=== PATIENT | female | born 1935 | race Caucasian/White ===

== ENCOUNTER → 2017-11-02 | Outpatient (CLI) | payer MEDICARE, BC ==
--- NOTE | 2017-11-02 14:15 | NM ---
EXAMINATION TYPE: NM bone scan whole body DATE OF EXAM: 11/02/2017 COMPARISON: NONE HISTORY: Pain Delayed whole-body scanning was performed following the injection of 23.5 mCi Tc 99m MDP. Images acq uired 3 hours post injection. FINDINGS: There is a linear area of intense uptake proximal level of T9 compatible with compression fracture. Abnormal uptake seen throughout the mid and lower lumbar spine likely degenerative. Abnormal intense uptake seen in the mid thoracic spine with degenerative related to compression defor mity. Abnormal uptake involving the anterior lower right and anterior mid left rib cage likely related to p revious fracture. Abnormal uptake involving the feet is likely post arthritic. Nonspecific uptake involving the cervical spine. IMPRESSION: 1. Intense abnormal linear uptake at 2 levels within the thoracic spine with the most marked findings seen the proximal level of T9 most consistent with compression fracture deformity. 2. Abnormal uptake involving the cervical and the lumbar spine likely degenerative and could be corre lated with x-ray. 3. Abnormal uptake involving the anterior left mid and anterior lower right rib cage likely related t o previous fracture.
== END | disposition home or self-care (01) ==
LOC: RADNMMAIN 10:11
PROVIDERS: ATTEND Physical Medicine & Rehabilitation
DX: R93.7 Abnormal findings on diagnostic imaging of other parts of musculoskeletal system (principal)
CPT/HCPCS: 78306; A9503

== ENCOUNTER 2024-10-13 18:15 | Inpatient (IN) | payer MEDICARE, BC ==
--- NOTE | 2024-10-13 18:29 | ED ---
Abdominal Pain HPI - General Stated Complaint: abd pain Time Seen by Provider: 10/13/24 18:26 Source: RN notes reviewed, old records reviewed, Caregiver Mode of arrival: EMS Limitations: no limitations - History of Present Illness Initial Comments: This is a 89-year-old female to ER for evaluation of 2 days of worsening back pain she believes it started when she went to get something out of a high or upper shelf. Patient has severe back pain here in the ER positive nausea vo miting positive vomiting severe anxiety and uncontrollable shaking. Patient is tremoring while giving history. Patient does have history of back pain concern for history of back fracture but no recent trauma no fevers no current shortness of breath or chest pain MD Complaint: abdominal pain, other (Back pain severe) -: days(s) Location: L flank, R flank, bilateral flank Radiation: back Severity: severe Severity scale (1-10): 10 Quality: sharp Consistency: intermittent Improves With: eating Worsens With: nothing Associated Symptoms: nausea, vomiting Treatments Prior to Arrival: other - Related Data Allergies Allergy/AdvReac Type Severity Reaction Status Date / Time No Known Allergies Allergy Verified 10/13/24 19:01 Review of Systems ROS Statement: Those systems with pertinent positive or pertinent negative responses have been documented in the HPI. ROS Other: All systems not noted in ROS Statement are negative. General Exam General appearance: alert, in no apparent distress Head exam: Present: atraumatic, normocephalic, normal inspection Eye exam: Present: normal appearance, PERRL, EOMI. Absent: scleral icterus, conjunctival injection, periorbital swelling ENT exam: Present: normal exam, mucous membranes moist Neck exam: Present: normal inspection. Absent: tenderness, meningismus, lymphadenopathy Respiratory exam: Present: normal lung sounds bilaterally. Absent: respiratory distress, wheezes, rales, rhonchi, stridor Cardiovascular Exam: Present: regular rate, normal rhythm, normal heart sounds. Absent: systolic murmur, diastolic murmur, rubs, gallop, clicks GI/Abdominal exam: Present: soft, normal bowel sounds. Absent: distended, tend erness, guarding, rebound, rigid Extremities exam: Present: normal inspection, full ROM, normal capillary refill. Absent: tenderness, pedal edema, joint swelling, calf tenderness Back exam: Present: normal inspection Neurological exam: Present: alert, oriented X3, CN II-XII intact Psychiatric exam: Present: normal affect, normal mood Skin exam: Present: warm, dry, intact, normal color. Absent: rash Course Vital Signs 10/13/24 10/13/24 10/13/24 18:25 19:50 21:45 Temperature 98.5 F Pulse Rate 71 97 74 Respiratory 17 18 18 Rate Blood Pressure 139/99 139/99 161/91 O2 Sat by Pulse 96 96 99 Oximetry - Reevaluation(s) Reevaluation #1: 10/13/24 23:32 Medical records reviewed Reevaluation #2: 10/13/24 23:32 Patient symptoms are intermittent and persistent, when they come on they are severe here in the ER Reevaluation #3: 10/13/24 23:32 Patient informed of results questions answered Reevaluation #4: Was pt. sent in by a medical professional or institution (FLACO Manriquez, [employer], urgent care, hospital, or penitentiary...) When possible be specific @ -no Did you speak to anyone other than the patient for history (EMS, parent, family, police, friend...)? What history was obtained from this source @ -no Did you review nursing and triage notes (agree or disagree)? Why? @ -agree Are old charts reviewed (outside hosp., previous admission, EMS record, old EKG, old radiological studies, urgent care reports/EKG's, penitentiary records)? Report findings @ -yes Differential Diagnosis (chest pain, altered mental status, abdominal pain women, abdominal pain men, vaginal bleeding, weakness, fever, dyspnea, syncope, headache, dizziness, GI bleed, back pain, seizure, CVA, palpatations, mental health, musculoskeletal)? @ -prior EKG interpreted by me (3pts min.). @ -yes X-rays interpreted by me (1pt min.). @ -yes negative for acute disease CT interpreted by me (1pt min.). @ -no U/S interpreted by me (1pt. min.). @ -no What testing was considered but not performed or refused? (CT, X-rays, U/S, labs)? Why? @ -none What meds were considered but not given or refused? Why? @ -none Did you discuss the management of the patient with other professionals (professionals i.e. Dr., PA, [employer]OR, lab, RT, psych nurse, social work msw, director of quality control, teacher, peace officer, employment case manager)? Give summary @ -no Was smoking cessation discussed for >3mins.? @ -no Was critical care preformed (if so, how long)? @ -no Were there social determinants of health that impacted care today? How? (H omelessness, low income, unemployed, alcoholism, drug addiction, transportation, low edu. Level, literacy, decrease access to med. care, skilled nursing, rehab)? @ -none Was there de-escalation of care discussed even if they declined (Discuss DNR or withdrawal of care, Hospice)? DNR status @ -no What co-morbidities impacted this encounter? (DM, HTN, Smoking, COPD, CAD, Cancer, CVA, ARF, Chemo, Hep., AIDS, mental health diagnosis, sleep apnea, morbid obesity)? @ -none Was patient admitted / discharged? Hospital course, mention meds given and route, prescriptions, significant lab abnormalities, going to OR and other pertinent info. @ - Undiagnosed new problem with uncertain prognosis? @ -no Drug Therapy requiring intensive monitoring for toxicity (Heparin, Nitro, Insulin, Cardizem)? @ -no Were any procedures done? @ -no Diagnosis/symptom? @ - Acute, or Chronic, or Acute on Chronic? @ -Acute Uncomplicated (without systemic symptoms) or Complicated (systemic symptoms)? @ -Complicated Side effects of treatment? @ -no Exacerbation, Progression, or Severe Exacerbation? @ -exacerbation Poses a threat to life or bodily function? How? (Chest pain, [place], [place], pneumonia, PE, COPD, DKA, ARF, appy, cholecystitis, CVA, Diverticulitis, Homicidal, Suicidal, threat to staff... and all critical care pts) @ -yes Reevaluation #5: Differential Back Pain: Strain, zoster, cauda equina syndrome, epidural abscess, vertebral osteomyelitis, discitis, fracture, subluxation, disc herniation, DJD, spinal stenosis, dissection, AAA, pancreatitis, peptic ulcer disease, pyelonephritis, kidney stone, this is not meant to be an all-inclusive list. - Consultations Consultation #1: Spoke with sound who agrees to admit the patient Medical Decision Making - Medical Decision Making 89 female to ER with acute and episodic attacks of intractable back pain patient will be admitted for significant anxiety reaction secondary to possibility of pain recurring in pain control when needed - Lab Data Result diagrams: 10/13/24 18:30 10/13/24 18:30 Lab Results 10/13/24 10/13/24 10/13/24 Range/Units 18:30 18:30 18:30 WBC 7.79 (4.50-10.00) 10*3/uL RBC 4.54 (4.10-5.20) 10*6/uL Hgb 15.0 (12.0-15.0) g/dL Hct 43.5 (37.2-46.3) % MCV 95.8 (80.0-97.0) fL MCH 33.0 H (27.0-32.0) pg MCHC 34.5 (32.0-37.0) g/dL Plt Count 175 (140-440) 10*3/uL MPV 9.2 L (9.5-12.2) fL Immature Gran % (Auto) 0.6 % Neutrophils % 70.0 % Lymphocytes % 21.6 % Monocytes % 6.9 % Eosinophils % 0.5 % Basophils % 0.4 % Immature Gran # 0.05 H (0.00-0.04) 10*3/uL Neutrophils # 5.45 (1.80-7.70) 10*3/uL Lymphocytes # 1.68 (0.90-5.00) 10*3/uL Monocytes # 0.54 (0.20-1.00) 10*3/uL Eosinophils # 0.04 (0.04-0.35) 10*3/uL Basophils # 0.03 (0.00-0.10) 10*3/uL PT 10.8 (10.0-12.5) sec INR 1.0 (<1.2) APTT 21.3 L (22.0-30.0) sec Sodium 137 (137-145) mmol/L Potassium 3.9 (3.5-5.1) mmol/L Chloride 107 (98-107) mmol/L Carbon Dioxide 20 L (22-30) mmol/L Anion Gap 10 mmol/L BUN 15 (7-17) mg/dL Creatinine 0.70 (0.52-1.04) mg/dL Est GFR (CKD-EPI)AfAm 89 (>60 ml/min/1.73 sqM) Est GFR (CKD-EPI)NonAf 77 (>60 ml/min/1.73 sqM) Glucose 158 H (74-99) mg/dL Calcium 10.7 H (8.4-10.2) mg/dL Phosphorus 3.4 (2.5-4.5) mg/dL Magnesium 1.9 (1.6-2.3) mg/dL Total Bilirubin 0.7 (0.2-1.3) mg/dL AST 29 (14-36) U/L ALT 22 (4-34) U/L Alkaline Phosphatase 113 (38-126) U/L Total Protein 7.4 (6.3-8.2) g/dL Albumin 4.3 (3.5-5.0) g/dL Amylase 77 (30-110) U/L Lipase 77 (23-300) U/L - Radiology Data Radiology results: report reviewed (CT abdomen pelvis and then CT angio chest abdomen pelvis negative for acute disease), image reviewed Disposition Clinical Impression: Thoracic back pain, Mid back pain, Intractable pain, Anxiety Disposition: ADMITTED IP TO THIS HOSP Condition: Fair Is patient prescribed a controlled substance at d/c from ED?: No Referrals: Nonstaff,Physician [Primary Care Provider] - 1-2 days Time of Disposition: 23:30
[2024-10-13 18:40] LABS: Basophils # (A) 0.03 10*3/uL (0.00-0.10); Basophils % (A) 0.4 %; Eosinophils # (A) 0.04 10*3/uL (0.04-0.35); Eosinophils % (A) 0.5 %; HCT 43.5 % (37.2-46.3); Lymphocytes # (A) 1.68 10*3/uL (0.90-5.00); Lymphocytes % (A) 21.6 %; MCHC 34.5 g/dL (32.0-37.0); MCV 95.8 fL (80.0-97.0); Mean Platelet Volume 9.2 fL (9.5-12.2); Monocytes # (A) 0.54 10*3/uL (0.20-1.00); Monocytes % (A) 6.9 %; Neutrophils # (A) 5.45 10*3/uL (1.80-7.70); Platelet Count 175 10*3/uL (140-440); RBC 4.54 10*6/uL (4.10-5.20); RDW 13.2 % (11.5-14.5); WBC 7.79 10*3/uL (4.50-10.00)
[2024-10-13 18:54] LABS: Prothrombin Time 10.8 sec (10.0-12.5)
[2024-10-13 19:00] LABS: Partial Thromboplastin Time 21.3 sec (22.0-30.0)
[2024-10-13 19:28] LABS: ALT 22 U/L (4-34); AST 29 U/L (14-36); African American GFR (CKD) 89 (>60 ml/min/1.73 sqM); Albumin 4.3 g/dL (3.5-5.0); Alkaline Phosphatase 113 U/L (38-126); Amylase 77 U/L (30-110); Anion Gap 10 mmol/L; Blood Urea Nitrogen 15 mg/dL (7-17); Calcium 10.7 mg/dL (8.4-10.2); Carbon Dioxide 20 mmol/L (22-30); Chloride 107 mmol/L (98-107); Glucose 158 mg/dL (74-99); Lipase 77 U/L (23-300); Magnesium 1.9 mg/dL (1.6-2.3); Non-African American GFR(CKD) 77 (>60 ml/min/1.73 sqM); Phosphorus 3.4 mg/dL (2.5-4.5); Potassium 3.9 mmol/L (3.5-5.1); Sodium 137 mmol/L (137-145); Total Bilirubin 0.7 mg/dL (0.2-1.3); Total Protein 7.4 g/dL (6.3-8.2)
[2024-10-13] MEDS: SODIUM CHLORIDE 0.9% 1,000 ML IV ONE (19:46)
[2024-10-13] MEDS: HYDROmorphone 1 MG/ML 1 ML SYRINGE IVP STA (19:47)
--- NOTE | 2024-10-13 19:56 | CT ---
EXAMINATION TYPE: CT abdomen pelvis wo con DATE OF EXAM: 10/13/2024 COMPARISON: NONE CLINICAL INDICATION: Female, 89 years old with history of LS spine, Pt is coming in for lower back pa in radiating all around to front of abdomen. Per pt she went to move/lift something and she felt a po p x 2 days ago., TECHNIQUE: CT scan of the abdomen and pelvis is performed , patient injected with mL of ., (none if empty) Oral contrast used: without Oral Contrast (none if empty) CT DLP: 558.9 mGycm, Automated exposure control for dose reduction was used. FINDINGS: Within the limitations of a noncontrast study, on the observations are made. LUNG BASES: Mild to moderate posterior bibasilar linear scarring and atelectasis. There is 1.5 x 1.1 cm posterior left lower lobe pulmonary nodule axial image 7. LIVER/GB: No significant abnormality is appreciated. PANCREAS: No significant abnormality is seen. SPLEEN: No significant abnormality is seen. ADRENALS: No significant abnormality is seen. KIDNEYS: No significant abnormality is seen. BOWEL: Diffuse colonic diverticulosis. No convincing CT evidence for acute diverticulitis. No abnorma l small or large bowel dilatation. Normal appearing appendix from the cecum. UTERUS/ADNEXA: No gross abnormality seen. LYMPH NODES: No greater than 1cm abdominal or pelvic lymph nodes are appreciated. OSSEOUS STRUCTURES: Demineralization is present. Mild chronic compression type fracture at L5 level. Mild to moderate disc space narrowing at L2-L3 level. Slight scoliotic curvature. Moderate narrowing of both hip joints. OTHER: Moderate calcified plaque of the aorta extends into branch vessels. Small fat-containing umbil ical hernia. IMPRESSION: 1. Chronic changes as detailed above without acute findings seen to account for the patient's clinica l symptoms. 2. There is a 1.5 x 1.1 cm posterior left lower lobe pulmonary nodule. Malignant neoplasm cannot be e xcluded. Advise further investigation with diagnostic contrast enhanced chest CT to assess for possib le additional nodules and/or thoracic adenopathy. [facility], , 10/13/2024 7:54 PM
[2024-10-13] MEDS: ONDANSETRON 4 MG/2 ML VIAL IVP STA (21:49)
[2024-10-13] MEDS: HYDROmorphone 0.5 MG/0.5 ML SYRINGE IVP STA (22:01)
[2024-10-13] MEDS: KETOROLAC 15 MG/ML 1 ML VIAL IVP STA (22:09)
--- NOTE | 2024-10-13 22:50 | CT ---
EXAMINATION TYPE: CT angio chest DATE OF EXAM: 10/13/2024 COMPARISON: NONE CLINICAL INDICATION: Female, 89 years old with history of PAIN, Pt is coming in for back pain. Per pt she went to move/lift something and she felt a pop x 2 days ago, TECHNIQUE: CTA scan of the thorax is performed with IV Contrast, patient injected with 100 combined w/ abd/pel m L of Isovue 370, pulmonary embolism protocol. MIP Images are created on CT scanner and reviewed. CT DLP: 369.1 mGycm. Automated Exposure Control for Dose Reduction was Utilized. FINDINGS: LUNGS: Mild to moderate bilateral lower lobe linear scarring and/or atelectasis is present. Upper truong gs remain clear. No pleural effusion or pneumothorax seen bilaterally. There is 1.5 x 1.2 cm left bas ilar pulmonary nodule axial image 107. HEART: Mild cardiomegaly. Moderate coronary artery calcifications present. MEDIASTINUM: Suboptimal study with most dense contrast in SVC but no convincing CT evidence for acute pulmonary embolism. There are no greater than 1 cm hilar or mediastinal lymph nodes. No pericardi al effusion is seen. OTHER: Mild height loss involving T9 vertebra. Please refer to same day CT abdomen and pelvis report for complete details in the upper abdomen. IMPRESSION: 1. No CT evidence for acute pulmonary embolism. 2. Mild to moderate bilateral lower lung linear scarring and/or atelectasis is present. 3. There is 1.5 cm left basilar pulmonary nodule. Advise nonemergent PET CT follow-up to rule out mal ignancy. [facility], , 10/13/2024 10:48 PM
--- NOTE | 2024-10-13 22:54 | CT ---
EXAMINATION TYPE: CT abdomen pelvis w con DATE OF EXAM: 10/13/2024 COMPARISON: CT abdomen and pelvis earlier today. CLINICAL INDICATION: Female, 89 years old with history of pain, Pt is coming in for back pain. Per pt she went to move/lift something and she felt a pop x 2 days ago, TECHNIQUE: CT scan of the abdomen and pelvis is performed with IV Contrast, patient injected with 100 combined w / CTA mL of Isovue 370., (none if empty) Oral contrast used: without Oral Contrast (none if empty) CT DLP: 891.6 mGycm, Automated exposure control for dose reduction was used. FINDINGS: LUNG BASES: Please refer to same day CTA chest for complete details on the lung bases. Persistent sub optimal study due to artifact from overlying adjacent upper extremities. LIVER/GB: No significant abnormality is appreciated. PANCREAS: No significant abnormality is seen. SPLEEN: No significant abnormality is seen. ADRENALS: No significant abnormality is seen. KIDNEYS: Symmetric cortical medullary uptake and excretion without hydronephrosis seen bilaterally. BOWEL: Diffuse colonic diverticulosis redemonstrated greatest distally. No convincing CT evidence for acute diverticulitis. No abnormal bowel dilatation. UTERUS/ADNEXA: No gross abnormality seen. LYMPH NODES: No greater than 1cm abdominal or pelvic lymph nodes are appreciated. OSSEOUS STRUCTURES: Demineralization is present. Mild chronic compression type fracture at L5 level. Mild to moderate disc space narrowing at L2-L3 level. Slight scoliotic curvature. Moderate narrowing of both hip joints. OTHER: Moderate calcified plaque of the abdominal aorta. Small fat-containing right inguinal hernia. Small fat-containing umbilical hernia redemonstrated. IMPRESSION: No significant acute finding is seen to account for patient's clinical symptoms. [facility], , 10/13/2024 10:52 PM
[2024-10-13] MEDS ORDERED: HYDROmorphone 1 MG/ML 1 ML SYRINGE IVP PRN (23:29)
[2024-10-13] MEDS ORDERED: NALOXONE 0.4 MG/ML 1 ML VIAL IV PRN (23:29)
[2024-10-13] MEDS ORDERED: LORazepam 1 MG/0.5 ML VIAL IV PRN (23:31)
[2024-10-13] MEDS: LORazepam 1 MG/0.5 ML VIAL IV STA (23:33)
[2024-10-14] MEDS: PANTOPRAZOLE 40 MG/10 ML VIAL IV SCH (00:58)
[2024-10-14] MEDS: SODIUM CHLORIDE 0.9% 1,000 ML IV SCH (01:01)
[2024-10-14 01:33] LABS: Appearance,Urine Clear (Clear); Bacteria,Urine Many /hpf; Bilirubin,Urine Negative (Negative); Blood,Urine Negative (Negative); Color,Urine Yellow; Glucose,Urine (UA) Negative (Negative); Hyaline Casts,Urine 3 /lpf (0-2); Ketones,Urine Negative (Negative); Leukocyte Esterase,Urine Small (Negative); Mucus,Urine Rare /hpf; Nitrite,Urine Negative (Negative); PH, Urine 5.5 (5.0-8.0); Protein,Urine Negative (Negative); RBC,Urine 3 /hpf (0-5); Squamous Epithelial Cell,Urine <1 /hpf (0-4); Urobilinogen,Urine <2.0 mg/dL (<2.0); WBC,Urine 27 /hpf (0-5)
[2024-10-14 01:46] LABS: Specific Gravity,Urine >1.050 (1.001-1.035)
[2024-10-14] MEDS ORDERED: ACETAMINOPHEN TAB 325 MG TAB PO PRN (03:16)
[2024-10-14 03:27] LABS: Basophils # (A) 0.02 10*3/uL (0.00-0.10); Basophils % (A) 0.3 %; Eosinophils # (A) 0.01 10*3/uL (0.04-0.35); Eosinophils % (A) 0.1 %; HCT 39.6 % (37.2-46.3); HGB 13.2 g/dL (12.0-15.0); Lymphocytes # (A) 0.99 10*3/uL (0.90-5.00); Lymphocytes % (A) 14.3 %; MCHC 33.3 g/dL (32.0-37.0); Mean Platelet Volume 9.4 fL (9.5-12.2); Monocytes # (A) 0.41 10*3/uL (0.20-1.00); Monocytes % (A) 5.9 %; Neutrophils # (A) 5.45 10*3/uL (1.80-7.70); Platelet Count 171 10*3/uL (140-440); RDW 13.2 % (11.5-14.5); WBC 6.91 10*3/uL (4.50-10.00)
[2024-10-14 03:40] LABS: ALT 20 U/L (4-34); AST 25 U/L (14-36); African American GFR (CKD) 77 (>60 ml/min/1.73 sqM); Albumin 3.6 g/dL (3.5-5.0); Alkaline Phosphatase 77 U/L (38-126); Anion Gap 9 mmol/L; Blood Urea Nitrogen 15 mg/dL (7-17); Calcium 9.8 mg/dL (8.4-10.2); Carbon Dioxide 27 mmol/L (22-30); Chloride 104 mmol/L (98-107); Glucose 142 mg/dL (74-99); Magnesium 2.1 mg/dL (1.6-2.3); Non-African American GFR(CKD) 67 (>60 ml/min/1.73 sqM); Phosphorus 4.4 mg/dL (2.5-4.5); Potassium 4.5 mmol/L (3.5-5.1); Sodium 140 mmol/L (137-145); Total Bilirubin 0.5 mg/dL (0.2-1.3); Total Protein 6.3 g/dL (6.3-8.2)
--- NOTE | 2024-10-14 03:51 | P.HPIM ---
History of Present Illness H&P Date: 10/13/24 History of present illness; 89-year-old female without significant past medical history presents to the Emergency Department with 2-day history of mid torso pain wrapping from her abdomen around the bilateral flanks to her back. She states that she was attempting to hang a ladder up on the wall, picked it up while rotating to her right and felt a sudden, significant pain. She states that she has had pains like this before however they generally resolve after a short period of time. This episode occurred 2 days ago and she continues to have intermittent pain lasting a couple of minutes at a time. When seen at bedside this evening she endorses having no pain currently. She denies any fever, chills, nausea/vomiting, shortness of breath or chest pain. Labratory review: -WBC 7.79, hemoglobin 15.0, hematocrit 43.5, platelet 175; sodium 137, potassium 3.9, bicarb 20, BUN 15, creatinine 0.70, calcium 10.7, phosphorus 3.4, magnesium 1.9, total bilirubin 0.7, AST 29, ALT 22, alkaline phosphatase 113, amylase 77, lipase 77 Imaging: - CT abdomen/pelvis showed demineralization present, mild chronic compression type fracture at L5, mildmoderate disc space narrowing at L2-L3 level; moderate calcified plaque of the abdominal aorta; 1.5 x 1.1 cm posterior left lower lobe pulmonary nodule - CT angiography of the chest showed no CT evidence of acute pulmonary embolism; mild to moderate bilateral lower lung linear scarring and/or atelectasis is present; 1.5 cm left basilar pulmonary nodule Vitals: - On arrival: Blood pressure 139/99, heart rate 71, respiratory 70, SpO2 96% on room air - Most recently: Blood pressure 139/77, heart rate 74, respiratory rate 16, SpO2 98% on 3 L nasal cannula Patient admitted to internal medicine service REVIEW OF SYSTEMS: Pertinent positives and negatives noted in HPI. The rest of the 14-point review of systems is negative. Physical Exam: General: nontoxic, no distress, appears at stated age Derm: warm, dry, intact Head: atraumatic, normocephalic, symmetric Eyes: EOMI, anicteric sclera Mouth: no lip lesion, mucus membranes moist Cardiovascular: S1 S2 reg, no murmur, rubs, or gallops Lungs: CTA bilateral, no rales, no accessory muscle use Abdominal: soft, non-tender to palpataion, no appreciable organomegaly Extremities: no gross muscle atrophy, no edema, no contractures Neuro: Alert, Oriented, CNII-XII grossly intact, gait normal Psych: well appearing, appropriate affect Assessment and plan 89-year-old female without significant past medical history presents to the Emergency Department with 2-day history of worsening back pain. #Diffuse upper quadrant abdominal pain, with radiation to the bilateral flanks and back - Previous episodes similar to this which resolved in <1 day - Physical exam denied any pain at the time of examination - CT abdomen/pelvis showed chronic changes, demineralization and mild chronic compression type fracture at L5 level with mild to moderate disc space narrowing at the L2-L3 level; as well as a 1.5 x 1.1 cm posterior left lower lobe pulmonary nodule - Received ketorolac 50 mg IVP, Dilaudid 0.5 mg IVP, Dilaudid 1 mg IVP in the ED - Pain control with Tylenol, escalate as necessary if pain returns to increased level - Consider further imaging studies if pain does not resolve - Physical therapy and Occupational Therapy consulted - She normal lives at home with her and able to carry out ADLs without issue, has had difficulties since injury #Hypercalcemia, resolved - On arrival calcium was, on repeat 9.8 - Had received 1 L NS bolus in the ED and had been maintained on 75 cc/h - Continue to monitor CMP GI prophylaxis: None DVT prophylaxis: Lovenox 40 mg subcu daily The patient is admitted with an anticipated less than 2 midnight stays for the evaluation of worsening back pain. CODE STATUS: No code Discussed with: Patient Anticipated discharge place: Home Dictation was produced using [employer] dictation software. please excuse any grammatical, word or spelling errors. Emeka Lopez MD PGY-1 IM Past Medical History Past Medical History: No Reported History Past Surgical History: Orthopedic Surgery Smoking Status: Never smoker Past Alcohol Use History: Rare Past Drug Use History: None Reported Medications and Allergies Allergies Allergy/AdvReac Type Severity Reaction Status Date / Time No Known Allergies Allergy Verified 10/13/24 19:01 Physical Exam Vitals: Vital Signs Temp Pulse Resp BP Pulse Ox 10/13/24 23:47 74 16 159/77 98 10/13/24 21:45 74 18 161/91 99 10/13/24 19:50 97 18 139/99 96 10/13/24 18:25 98.5 F 71 17 139/99 96 Intake and Output 10/13/24 10/13/24 10/14/24 14:59 22:59 06:59 Other: Weight 72.575 kg Results CBC & Chem 7: 10/14/24 02:47 10/14/24 02:47 Labs: Abnormal Lab Results - Last 24 Hours (Table) 10/13/24 10/13/24 10/13/24 Range/Units 18:30 18:30 18:30 MCH 33.0 H (27.0-32.0) pg MPV 9.2 L (9.5-12.2) fL Immature Gran # 0.05 H (0.00-0.04) 10*3/uL APTT 21.3 L (22.0-30.0) sec Carbon Dioxide 20 L (22-30) mmol/L Glucose 158 H (74-99) mg/dL Calcium 10.7 H (8.4-10.2) mg/dL
[2024-10-14] MEDS: ENOXAPARIN 40 MG/0.4 ML SYRINGE SQ SCH (08:36)
[2024-10-14] MEDS: HYDROcodone/APAP 5-325MG 1 EACH TAB PO PRN (08:56)
--- NOTE | 2024-10-14 12:28 | P.CON ---
Consult Note - . Consult date: 10/14/24 Assessment/Plan:: This is an 89-year-old lady with torso pain which started after twisting her back. The patient feels the pain all around her torso from the back spreading to the front of her chest. She denies any paresthesia in the painful areas of her torso. She does feel weakness in both legs. Her pain gets worse with reaching over however it has been getting better. She tolerated walking with the physical therapist today. She is still afraid of moving because of this pain. She feels comfortable when she sits still in her chair however she cannot take a deep breath because of this pain. By physical exam she is alert oriented x 3 in moderate distress due to her pain. Muscle strength exam in the lower extremities showed decreased left knee extension and flexion to 4 out of 5 compared to the right side. Assessment and plan: The patient may need a CT scan of the thoracic spine. For now she is to continue her oral analgesics as per her primary care team. If the primary care team feels that she is doing better she can get discharged and then come back for a thoracic spine CT scan. She can then follow-up with the pain clinic if her pain continues to be a problem. I thank you for the consultation
[2024-10-14] MEDS: LIDOCAINE 4% PATCH TOPICAL SCH (12:55)
--- NOTE | 2024-10-14 13:41 | CT ---
EXAMINATION TYPE: CT thor lumbar spine wo con DATE OF EXAM: 10/14/2024 COMPARISON: None CLINICAL INDICATION: Female, 89 years old with history of further eval thoracic per pain management; PHH, Severe upper and lower back pain. CT DLP: 1889.7 mGycm Automated exposure control for dose reduction was used. FINDINGS: There is diffuse osteopenia. Thoracic spin: There are mild to moderate compression fractures of T8 and T9 without retropulsion. There is a mild c ompression fracture of T6. The thoracic vertebral segments are normal in alignment. There is no thoracic disc or spinal stenosis. The disc spaces are minimally degenerated with mild dis c space narrowing and spondylosis in the mid and lower thoracic spine. Lumbar spine: There is a moderate compression fracture of L5 without significant retropulsion.. There is mild to moderate degenerative disease at the L1-2 and L2-3 levels where there is mild disc s pace narrowing and spondylosis. There are no lumbar disc herniations. Secondary to circumferential disc bulge, facet hypertrophy and thickening ligamentum flavum, there is mild spinal stenosis at the L2-3 level, severe spinal stenosis at the L3-4 level and mild spinal yousuf nosis at the L4-5. Paraspinal soft tissues are unremarkable. IMPRESSION: 1. DIFFUSE OSTEOPENIA. 2. MILD TO MODERATE COMPRESSION FRACTURES OF T8 AND T9 AND MILD COMPRESSION FRACTURE AT T6. 3. MODERATE COMPRESSION FRACTURE OF L5. 4. MILD TO MODERATE DEGENERATIVE DISEASE AT THE L1-2 AND L2-3 LEVELS. THERE ARE NO LUMBAR DISC HERNIA TIONS. 5. MULTILEVEL SPINAL STENOSIS MILD AT THE L2-3 LEVEL, SEVERE AT THE L3-4 LEVEL, AND MILD AT THE L4-5 LEVEL. [facility], Workstation: MARIA TERESA, 10/14/2024 1:38 PM
--- NOTE | 2024-10-14 14:44 | P.PN ---
Subjective Progress Note Date: 10/14/24 Hospital course: Patient is a very pleasant 89-year-old female with a past medical history of osteoarthritis and previous orthopedic surgery. She presented to the emergency department with a chief complaint of back pain. Patient reports she was attempting to hang a ladder up on a wall and when she picked it up and rotated to her right she felt sudden significant pain throughout her mid back radiating around into her bilateral flanks/torso. Upon arrival to our facility, patient underwent evaluation in the emergency department. Vital signs upon arrival show blood pressure 139/99, heart rate 71, respiratory rate 17, temp 98.5 F, and SpO2 of 96% on room air. Labs completed and reviewed. CBC showing elevated MCH of 33.0 and MPV of 9.2 otherwise normal findings. Coagulation profile showing a low PTT of 21.3. BMP showing hypocarbia with bicarb of 20, blood glucose of 158, and hypercalcemia with calcium of 10.7. Magnesium normal findings at 1.9. Liver profile unremarkable. Amylase and lipase normal findings. Urinalysis negative for infection. CT abdomen and pelvis showing chronic changes with a 1.5 x 1.1 cm left lower lobe pulmonary nodule. CTA chest negative for PE showing mild to moderate bilateral lower lung linear scarring and/or atelectasis and again confirming the 1.5 cm left basilar pulmonary nodule, recommending outpatient PET scan to rule out malignancy.CT abdomen and pelvis without contrast negative for acute intra-abdominal process revealing demineralization and compression fracture at L5 level with moderate disc space narrowing at L2-L3 and T9 vertebra height loss. Patient was admitted under services with consultation to pain management and PT/OT. Physical exam: Vital signs reviewed and stable. General: Nontoxic, no distress and appears stated age. Derm: Skin warm and dry, normal coloration for ethnicity. Head: Atraumatic, normocephalic and symmetric. Eyes: EOM's intact, no lid lag, and anicteric sclera Mouth: no lip lesions, mucus membranes moist Cardiovascular: regular rate and rhythm with normal S1S2, no murmur, positive posterior tibial pulses bilaterally, and cap refill < 2 seconds. Lungs: Respirations even, regular, and unlabored on room air. Lungs CTA bilaterally, no rhonchi, no rales, no wheezing, and no accessory muscle usage. Abdominal: soft, nontender to palpation, no guarding, no appreciable organome bill Ext: ROM intact. No gross muscle atrophy, no edema, no contractures Neuro: Speech clear, face symmetrical and CN II-XII grossly intact with no noted focal neuro deficits Psych: Alert and oriented to person, place, time, and situation. Appropriate and pleasant affect. Assessment and Plan of Care: Acute intractable back pain, thoracic and lumbar region -Symptomatic care and pain management with Tylenol-650 mg p.o. every 6 hours as needed for mild pain, [place] 5/325 mg tablets as needed for moderate pain, and lidocaine patch every 24 hours. -Consult placed to pain management, appreciate recommendations. -CT thoracic and lumbar spine -PT/OT consulted, appreciate recommendations Pulmonary nodule -Discussed findings with patient and her at bedside, recommend outpatient follow-up with PET scan. Hypercalcemia Resolved with IV fluid hydration. Data and imaging reviewed: Vital signs reviewed. Blood pressure 147/68, heart rate 79, respiratory rate 17, temp 97.6 F, and SpO2 of 97% on 2 L O2. -Morning labs reviewed. CBC showing elevated MCV of 99.0, MCH of 33.0, and MPV of 9.4. BMP unremarkable. Blood glucose 142. Calcium 9.8. Magnesium 2.1. Troponin was less than 0.012. Urinalysis negative for infection. CODE STATUS: DNR/DNI DVT prophylaxis: Lovenox Discussed with: Patient, patient's at bedside, and RN Anticipated discharge date: Pending clinical course Anticipated discharge place: Home Patient was seen independently by Nurse Pracitioner. This document was prepared using [employer] dictation software. Please allow for errors in odd jobs day worker, while rare they do occur. Rod Ratliff NP rendered care for this patient independently, reviewed the fin dings and plan as documented in the note above and agree with plan. I did not physically speak with or examine the patient on this date. Objective - Vital Signs Vital signs: Vital Signs Temp 96.9 F L 10/14/24 00:54 Pulse 70 10/14/24 00:54 Resp 18 10/14/24 02:00 BP 173/71 10/14/24 00:54 Pulse Ox 92 L 10/14/24 00:54 FiO2 Intake & Output 10/13/24 10/14/24 10/14/24 18:59 06:59 18:59 Weight 72.575 kg 72.575 kg Other: Voiding Method Toilet # Voids 2 - Labs CBC & Chem 7: 10/14/24 02:47 10/14/24 02:47 Labs: Abnormal Lab Results - Last 24 Hours (Table) 10/13/24 10/13/24 10/13/24 Range/Units 18:30 18:30 18:30 RBC (4.10-5.20) 10*6/uL MCV (80.0-97.0) fL MCH 33.0 H (27.0-32.0) pg MPV 9.2 L (9.5-12.2) fL Immature Gran # 0.05 H (0.00-0.04) 10*3/uL Eosinophils # (0.04-0.35) 10*3/uL APTT 21.3 L (22.0-30.0) sec Carbon Dioxide 20 L (22-30) mmol/L Glucose 158 H (74-99) mg/dL Calcium 10.7 H (8.4-10.2) mg/dL Ur Specific [place] (1.001-1.035) Ur Leukocyte Esterase (Negative) Urine WBC (0-5) /hpf Urine Bacteria (None) /hpf Hyaline Casts (0-2) /lpf Urine Mucus (None) /hpf 10/14/24 10/14/24 10/14/24 Range/Units 01:02 02:47 02:47 RBC 4.00 L (4.10-5.20) 10*6/uL MCV 99.0 H (80.0-97.0) fL MCH 33.0 H (27.0-32.0) pg MPV 9.4 L (9.5-12.2) fL Immature Gran # (0.00-0.04) 10*3/uL Eosinophils # 0.01 L (0.04-0.35) 10*3/uL APTT (22.0-30.0) sec Carbon Dioxide (22-30) mmol/L Glucose 142 H (74-99) mg/dL Calcium (8.4-10.2) mg/dL Ur Specific [place] >1.050 H (1.001-1.035) Ur Leukocyte Esterase Small H (Negative) Urine WBC 27 H (0-5) /hpf Urine Bacteria Many H (None) /hpf Hyaline Casts 3 H (0-2) /lpf Urine Mucus Rare H (None) /hpf
[2024-10-14] MEDS: MORPHINE SULFATE 2 MG/ML SYRINGE IV PRN (16:32)
[2024-10-14] MEDS: ONDANSETRON 4 MG/2 ML VIAL IVP PRN (16:32)
--- NOTE | 2024-10-15 11:14 | P.CNOR ---
History of Present Illness - [facility] Consult date: 10/15/24 Consult reason: back pain History of present illness: Patient is an 89-year-old female who presented to the hospital on 10/13/2024 with regards to mid torso and back pain. Patient was apparently lifting a ladder at her home when she had excruciating pain that prompted her to report to [facility]. Patient was evaluated at that time, she had underwent multiple imaging and lab test. Patient was admitted under internal medicine due to the pain, orthopedic team was consulted due to abnormal CT scan of both the thoracic and lumbar spine. Patient was evaluated today at bedside, she is sitting up resting comfortably. Patient did receive a TLSO brace yesterday and has been utilizing it when ambulating, she states that has been helping. She also is taking a low-dose [place] at this time which she feels is also helping. She notes most of the pain when attempting to move, this does seem to bein in the mid area of the back and also extends to the lower back. Patient denies any previous surgery to her back. Patient normally ambulates with occasional walker or cane. She is relatively active for an 89-year-old female. She denies any numbness or tingling to the bilateral lower extremities or bilateral upper extremities. She does note some vague weakness in her legs. She denies any loss of bowel or bladder function at this time. She denies any rae trauma, this to include falls. Review of Systems Constitutional: Reports as per [facility] Past Medical History Past Medical History: No Reported History History of Any Multi-Drug Resistant Organisms: None Reported Past Surgical History: Orthopedic Surgery Past Anesthesia/Blood Transfusion Reactions: No Reported Reaction Smoking Status: Never smoker Past Alcohol Use History: Rare Past Drug Use History: None Reported Medications and Allergies Home Medications Medication Instructions Recorded Confirmed Type Lidocaine 4% Patch 1 patch TOPICAL DAILY@1230 30 Days 10/14/24 Rx #30 patch Allergies Allergy/AdvReac Type Severity Reaction Status Date / Time No Known Allergies Allergy Verified 10/14/24 10:24 Physical Examination Gen: AOx3, NAD VSS stable at this time Integument: No open lesions or sores are visualized throughout the cervical, thoracic or lumbar spine Palpation: Patient demonstrates mild tenderness palpation in the paraspinal region of the thoracic spine and lumbar spine, there is no significant midline tenderness ROM: Full range of motion in all major muscle groups of the bilateral upper extremities, no focal deficits Full range of motion in all major muscle groups of the bilateral lower extremities, no focal deficits Sensory Exam: Senory exam to light touch is intact C5-T1 Senosry exam to light touch is intact L2-S1 Motor: 4/5 strength appreciated in the bilateral upper extremities with shoulder elevation, shoulder abduction, elbow extension, elbow flexion, wrist extension, wrist flexion, shirt finisher 4/5 strength appreciate the bilateral lower extremities with plantarflexion, dorsiflexion, EHL, FHL 4-/5 strength appreciated bilateral lower extremities with hip flexion, knee extension, knee flexion Reflexes: 2/4 in all UE and LE Negative Klarissa's bilaterally Negative clonus bilaterally Special Test: Negative straight leg raise bilaterally Negative logroll maneuver bilaterally Results - Labs Labs: H & H 10/13/24 10/14/24 Range/Units 18:30 02:47 Hgb 15.0 13.2 (12.0-15.0) g/dL Hct 43.5 39.6 (37.2-46.3) % Coagulation 10/13/24 Range/Units 18:30 INR 1.0 (<1.2) Result Diagrams: 10/14/24 02:47 10/14/24 02:47 - Diagnostic results CT Scan - lumbar: report reviewed, image reviewed Assessment and Plan Assessment: Thoracic/lumbar pain Multiple thoracic vertebral compression fractures Multilevel lumbar spondylosis Multilevel lumbar stenosis L5 VCF Other medical comorbidities Plan: Imaging: Images and reports reviewed and demonstrate multilevel thoracic vertebral compression fractures of varying degrees. There is significant spondylosis noted throughout the lumbar spine, most severe being L1-L2, L2-L3, L3-L4, there is also varying degrees of stenosis in these areas. L5 vertebral body compression fracture noted Plan: I was able to discuss the case, this to include with physical exam findings and imaging studies and my attending Dr. Torres's and. No emergent spine surgical intervention recommended at this time Recommending continuing conservative measures, this to include use of the TLSO brace when up and ambulating Pain control measures to continue with oral [place] as needed, could also consider low-dose muscle relaxer, oral Tylenol, Toradol GI DVT prophylaxis per primary medical service PT/OT evaluation Other medical specialty recommendations appreciated We briefly discussed the option of a kyphoplasty of the L5 vertebral body pending outpatient symptoms progress over the next 24-48 hours. We will continue to follow patient during hospital stay Time with Patient: Less than 30
--- NOTE | 2024-10-15 17:28 | P.PN ---
Subjective Progress Note Date: 10/15/24 Hospital course: Patient is a very pleasant 89-year-old female with a past medical history of osteoarthritis and previous orthopedic surgery. She presented to the emergency department with a chief complaint of back pain. Patient reports she was attempting to hang a ladder up on a wall and when she picked it up and rotated to her right she felt sudden significant pain throughout her mid back radiating around into her bilateral flanks/torso. Upon arrival to our facility, patient underwent evaluation in the emergency department. Vital signs upon arrival show blood pressure 139/99, heart rate 71, respiratory rate 17, temp 98.5 F, and SpO2 of 96% on room air. Labs completed and reviewed. CBC showing elevated MCH of 33.0 and MPV of 9.2 otherwise normal findings. Coagulation profile showing a low PTT of 21.3. BMP showing hypocarbia with bicarb of 20, blood glucose of 158, and hypercalcemia with calcium of 10.7. Magnesium normal findings at 1.9. Liver profile unremarkable. Amylase and lipase normal findings. Urinalysis negative for infection. CT abdomen and pelvis showing chronic changes with a 1.5 x 1.1 cm left lower lobe pulmonary nodule. CTA chest negative for PE showing mild to moderate bilateral lower lung linear scarring and/or atelectasis and again confirming the 1.5 cm left basilar pulmonary nodule, recommending outpatient PET scan to rule out malignancy.CT abdomen and pelvis without contrast negative for acute intra-abdominal process revealing demineralization and compression fracture at L5 level with moderate disc space narrowing at L2-L3 and T9 vertebra height loss. Patient was admitted under services with consultation to pain management and PT/OT. Physical exam: Patient seen and fully evaluated at bedside this morning. She continues to report intractable thoracic and lumbar back pain in which she reports worsens with any movement. She was resting in bed visiting with at bedside. Patient denies having any chest pain, palpitations, shortness of breath, or experiencing any numbness/tingling/weakness/swelling in her extremities. Vital signs reviewed and stable. General: Nontoxic, no distress and appears stated age. Derm: Skin warm and dry, normal coloration for ethnicity. Head: Atraumatic, normocephalic and symmetric. Eyes: EOM's intact, no lid lag, and anicteric sclera Mouth: no lip lesions, mucus membranes moist Cardiovascular: regular rate and rhythm with normal S1S2, no murmur, positive posterior tibial pulses bilaterally, and cap refill < 2 seconds. Lungs: Respirations even, regular, and unlabored on room air. Lungs CTA bilaterally, no rhonchi, no rales, no wheezing, and no accessory muscle usage. Abdominal: soft, nontender to palpation, no guarding, no appreciable organomegaly Ext: ROM intact. No gross muscle atrophy, no edema, no contractures Neuro: Speech clear, face symmetrical and CN II-XII grossly intact with no noted focal neuro deficits Psych: Alert and oriented to person, place, time, and situation. Appropriate and pleasant affect. Assessment and Plan of Care: Acute intractable back pain, thoracic and lumbar region Multiple thoracic vertebral compression fractures Multilevel spinal stenosis with severe spinal stenosis at the L3/L4 level. -CT thoracic and lumbar spine showing diffuse osteopenia with mild to moderate compression fractures of the T8 and T9 and mild compression fracture at T6, moderate compression fracture of L5, mild to moderate degenerative disc disease at L1 and L2 and L2-L3 levels and multilevel spinal stenosis mild at L2-L3 level and severe at the L3-L4 level and mild at L4-L5 level. -Discussed CT findings with orthopedic surgery PA stating will monitor how patient tolerates with pain medication regimen but at this time placing patient on schedule for L5 kyphoplasty on Sunday morning 10/17/2024 -Symptomatic care and pain management with Tylenol-650 mg p.o. every 6 hours as needed for mild pain, [place] 5/325 mg tablets as needed for moderate pain, and lidocaine patch every 24 hours. -TLSO brace when out of bed -Pain management following -CT thoracic and lumbar spine -PT/OT following Pulmonary nodule -Discussed findings with patient and her at bedside, recommend outpatient follow-up with PET scan. Hypercalcemia Resolved with IV fluid hydration. Data and imaging reviewed: Vital signs reviewed. Blood pressure 133/67, heart rate 72, respiratory rate 15, temp 97.8 F, and SpO2 of 98% on 3 L. Discussed with RN need to wean down oxygen as patient tolerates. -Labs reviewed. CBC showing elevated MCV of 99.0, MCH of 33.0, and MPV of 9.4. BMP unremarkable. Blood glucose 142. Calcium 9.8. Magnesium 2.1. Troponin was less than 0.012. Urinalysis negative for infection. CODE STATUS: DNR/DNI DVT prophylaxis: Lovenox Discussed with: Patient, patient's at bedside, social work program coordinator and RN Anticipated discharge date: Pending clinical course Anticipated discharge place: Home Patient was seen independently by Nurse Pracitioner. This document was prepared using [employer] dictation software. Please allow for errors in dispatcher ship pilot, while rare they do occur. Rod Ratliff FINISH MENDER rendered care for this patient independently, reviewed the findings and plan as documented in the note above and agree with plan. I did no t physically speak with or examine the patient on this date. Objective - Vital Signs Vital signs: Vital Signs Temp 97.8 F 10/15/24 07:00 Pulse 72 10/15/24 07:00 Resp 16 10/15/24 08:00 BP 133/67 10/15/24 07:00 Pulse Ox 98 10/15/24 07:00 FiO2 Intake & Output 10/14/24 10/15/24 10/15/24 18:59 06:59 18:59 Intake Total 461 Balance 461 Intake: Oral 461 Other: # Voids 1 1 # Bowel Movements 0 - Labs CBC & Chem 7: 10/14/24 02:47 10/14/24 02:47
[2024-10-16] MEDS: traZODone HCL 50 MG TAB PO PRN (01:27)
[2024-10-16 08:49] LABS: HGB 11.9 g/dL (12.0-15.0); MCH 32.3 pg (27.0-32.0); MCHC 32.2 g/dL (32.0-37.0); MCV 100.5 FL (80.0-97.0); Mean Platelet Volume 9.9 FL (9.5-12.2); Platelet Count 166 X 10*3/uL (140-440); RBC 3.68 X 10*6/uL (4.10-5.20); RDW 13.5 % (11.5-14.5); WBC 5.71 X 10*3/uL (4.50-10.00)
[2024-10-16 08:50] LABS: NRBC Per 100 WBC 0 X 10*3/uL (0.00-0.01)
[2024-10-16 09:02] LABS: BUN/Creat Ratio 14.88 Ratio (12.00-20.00); Blood Urea Nitrogen 11.9 mg/dL (9.0-27.0); Calcium 8.8 mg/dL (8.7-10.3); Carbon Dioxide 27.2 mmol/L (21.6-31.8); Chloride 106 mmol/L (96-109); Glucose 135 mg/dL (70-110); Magnesium 1.9 mg/dL (1.5-2.4); Potassium 4.2 mmol/L (3.5-5.5); Sodium 140 mmol/L (135-145)
--- NOTE | 2024-10-16 16:16 | P.PN ---
Subjective Progress Note Date: 10/16/24 Principal diagnosis: Severe back pain Patient was evaluated at bedside today, her was also present. Patient continues to have midthoracic pain with movement. I saw her on a couple different occasions today. They were able to get her out of bed with physical therapy and use of the TLSO brace. Patient did struggle when it came to transferring. Patient has IV and oral narcotics on board, we have also given a dose of IV Toradol. Patient continues to express interest in a kyphoplasty for the T6 VCF. I was able to speak with Dr. Torres's yesterday and review the images, the L5 VCF appears chronic, the T6 appears more acute. Would correlate with where patient is having her pain. I also spoke with the patient's grandson today on the phone regarding the current treatment options and plan. Objective - Vital Signs Vital signs: Vital Signs Temp 98.4 F 10/16/24 14:10 Pulse 72 10/16/24 14:10 Resp 17 10/16/24 14:10 BP 145/61 10/16/24 14:10 Pulse Ox 96 10/16/24 14:10 FiO2 Intake & Output 10/15/24 10/16/24 10/16/24 18:59 06:59 18:59 Intake Total 236 Balance 236 Intake: Oral 236 Other: Voiding Method Toilet # Voids 1 - Exam Gen: AOx3, NAD VSS stable at this time Integument: No open lesions or sores are visualized throughout the cervical, thoracic or lumbar spine Palpation: Patient demonstrates mild tenderness palpation in the paraspinal region of the thoracic spine and lumbar spine, there is no significant midline tenderness ROM: Full range of motion in all major muscle groups of the bilateral upper extremities, no focal deficits Full range of motion in all major muscle groups of the bilateral lower extremities, no focal deficits Sensory Exam: Senory exam to light touch is intact C5-T1 Senosry exam to light touch is intact L2-S1 Motor: 4/5 strength appreciated in the bilateral upper extremities with shoulder elevation, shoulder abduction, elbow extension, elbow flexion, wrist extension, wrist flexion, dean of instruction 4/5 strength appreciate the bilateral lower extremities with plantarflexion, dorsiflexion, EHL, FHL 4-/5 strength appreciated bilateral lower extremities with hip flexion, knee extension, knee flexion Reflexes: 2/4 in all UE and LE Negative Klarissa's bilaterally Negative clonus bilaterally Special Test: Negative straight leg raise bilaterally Negative logroll maneuver bilaterally - Labs CBC & Chem 7: 10/16/24 04:19 10/16/24 04:19 Labs: Abnormal Lab Results - Last 24 Hours (Table) 10/16/24 10/16/24 Range/Units 04:19 04:19 RBC 3.68 L (4.10-5.20) X 10*6/uL Hgb 11.9 L (12.0-15.0) g/dL Hct 37.0 L (37.2-46.3) % MCV 100.5 H (80.0-97.0) [place] MCH 32.3 H (27.0-32.0) pg Glucose 135 H (70-110) mg/dL Assessment and Plan Assessment: Thoracic/lumbar pain Multiple thoracic vertebral compression fractures, T6 acute VCF Multilevel lumbar spondylosis Multilevel lumbar stenosis L5 VCF, chronic Other medical comorbidities Plan: Plan: I was able to discuss the case, this to include with physical exam findings and imaging studies and my attending Dr. Perkins. After review of images, the T6 VCF appears more acute versus the L5 appears more chronic. This does coincide with the patient's current symptoms. Conservative measures are helping but patient is very interested in receiving a kyphoplasty she feels this would help her advance quicker in her rehabilitation. I did discuss the surgery briefly with both the patient, her grandson and . Pain control measures to continue with oral [place] as needed, could also consider low-dose muscle relaxer, oral Tylenol, Toradol GI DVT prophylaxis per primary medical service PT/OT evaluation Other medical specialty recommendations appreciated Patient has been scheduled for a T6 kyphoplasty for 10/17/2024, consent will be obtained prior. N.p.o. diet after midnight Further recommendations to follow Time with Patient: Less than 30
[2024-10-16] MEDS: polyethylene glycoL 3350 17 GM POWD.PACK PO SCH (16:25)
[2024-10-16] MEDS: bisacodyL 5 MG TABLET.DR PO PRN (16:25)
--- NOTE | 2024-10-16 17:14 | P.PN ---
Subjective Progress Note Date: 10/16/24 Hospital course: Patient is a very pleasant 89-year-old female with a past medical history of osteoarthritis and previous orthopedic surgery. She presented to the emergency department with a chief complaint of back pain. Patient reports she was attempting to hang a ladder up on a wall and when she picked it up and rotated to her right she felt sudden significant pain throughout her mid back radiating around into her bilateral flanks/torso. Upon arrival to our facility, patient underwent evaluation in the emergency department. Vital signs upon arrival show blood pressure 139/99, heart rate 71, respiratory rate 17, temp 98.5 F, and SpO2 of 96% on room air. Labs completed and reviewed. CBC showing elevated MCH of 33.0 and MPV of 9.2 otherwise normal findings. Coagulation profile showing a low PTT of 21.3. BMP showing hypocarbia with bicarb of 20, blood glucose of 158, and hypercalcemia with calcium of 10.7. Magnesium normal findings at 1.9. Liver profile unremarkable. Amylase and lipase normal findings. Urinalysis negative for infection. CT abdomen and pelvis showing chronic changes with a 1.5 x 1.1 cm left lower lobe pulmonary nodule. CTA chest negative for PE showing mild to moderate bilateral lower lung linear scarring and/or atelectasis and again confirming the 1.5 cm left basilar pulmonary nodule, recommending outpatient PET scan to rule out malignancy.CT abdomen and pelvis without contrast negative for acute intra-abdominal process revealing demineralization and compression fracture at L5 level with moderate disc space narrowing at L2-L3 and T9 vertebra height loss. Patient was admitted under services with consultation to pain management and PT/OT. Physical exam: Patient seen and fully evaluated at bedside this morning. She continues to report intractable thoracic and lumbar back pain with any movement. She was sitting up in the chair with TLSO brace on at this time. She reports the brace and pain medication only helps with rest but is is not helping with movement and continues to have moderate pain. She states that she discussed with her and grandson and would like to proceed with surgical intervention tomorrow. Vital signs reviewed and stable. General: Nontoxic, no distress and appears stated age. Derm: Skin warm and dry, normal coloration for ethnicity. Head: Atraumatic, normocephalic and symmetric. Eyes: EOM's intact, no lid lag, and anicteric sclera Mouth: no lip lesions, mucus membranes moist Cardiovascular: regular rate and rhythm with normal S1S2, no murmur, positive posterior tibial pulses bilaterally, and cap refill < 2 seconds. Lungs: Respirations even, regular, and unlabored on room air. Lungs CTA bilaterally, no rhonchi, no rales, no wheezing, and no accessory muscle usage. Abdominal: soft, nontender to palpation, no guarding, no appreciable organomegaly Ext: ROM intact. No gross muscle atrophy, no edema, no contractures Neuro: Speech clear, face symmetrical and CN II-XII grossly intact with no noted focal neuro deficits Psych: Alert and oriented to person, place, time, and situation. Appropriate and pleasant affect. Assessment and Plan of Care: Acute intractable back pain, thoracic and lumbar region Multiple thoracic vertebral compression fractures Multilevel spinal stenosis with severe spinal stenosis at the L3/L4 level. -CT thoracic and lumbar spine showing diffuse osteopenia with mild to moderate compression fractures of the T8 and T9 and mild compression fracture at T6, moderate compression fracture of L5, mild to moderate degenerative disc disease at L1 and L2 and L2-L3 levels and multilevel spinal stenosis mild at L2-L3 level and severe at the L3-L4 level and mild at L4-L5 level. -Orthopedic surgery following. Discussed plan of care with orthopedic surgery PA stating plan is for for T6 kyphoplasty tomorrow. -Symptomatic care and pain management with Tylenol-650 mg p.o. every 6 hours as needed for mild pain, [place] 5/325 mg tablets as needed for moderate pain, and lidocaine patch every 24 hours. -TLSO brace when out of bed -Pain management following -CT thoracic and lumbar spine -PT/OT following Pulmonary nodule -Discussed findings with patient and her at bedside, recommend outpatient follow-up with PET scan. Hypercalcemia Resolved with IV fluid hydration. Data and imaging reviewed: Vital signs reviewed. Blood pressure 133/67, heart rate 72, respiratory rate 15, temp 97.8 F, and SpO2 of 98% on 3 L. Discussed with RN need to wean down oxygen as patient tolerates. -Labs reviewed. CBC showing hemoglobin 11.9, hematocrit 37.0, MCV 100.5, and MCH of 32.3. BMP unremarkable. Blood glucose 135. Calcium 8.8. Magnesium 1 .9. CODE STATUS: DNR/DNI DVT prophylaxis: Lovenox Discussed with: Patient, patient's at bedside, RN, and orthopedic PA Anticipated discharge date: Pending clinical course Anticipated discharge place: Home Patient was seen independently by Nurse Pracitioner. This document was prepared using [employer] dictation software. Please allow for errors in pmo consultant, while rare they do occur. Rod Ratliff NP rendered care for this patient independently, reviewed the findings and plan as documented in the note above and agree with plan. I did not physically speak with or examine the patient on this date. Objective - Vital Signs Vital signs: Vital Signs Temp 98 F 10/16/24 02:00 Pulse 71 10/16/24 02:00 Resp 15 10/16/24 02:00 BP 149/71 10/16/24 02:00 Pulse Ox 95 10/16/24 02:00 FiO2 Intake & Output 10/15/24 10/16/24 10/16/24 18:59 06:59 18:59 Other: # Voids 1 - Labs CBC & Chem 7: 10/16/24 04:19 10/16/24 04:19
[2024-10-17] MEDS: IV FLUID CONTINUATION 1,000 ML IV ONE (13:42)
[2024-10-17] MEDS: DEXAMETHASONE SOD PHOSPHATE 4 MG/ML 1 ML VIAL IVP STA (14:34)
[2024-10-17] MEDS ORDERED: PROPOFOL 10 MG/ML 20 ML VIAL IV ONE (14:35)
[2024-10-17] MEDS ORDERED: SUCCINYLCHOLINE CHLORIDE 200 MG/10 ML VIAL IV ONE (14:35)
[2024-10-17] MEDS ORDERED: PHENYLEPHRINE-0.9% NACL SYG 1,000 MCG/10 ML SYRINGE ONE (14:35)
[2024-10-17] MEDS ORDERED: fentaNYL (PF) 50 MCG/ML 2 ML AMP ONE (14:35)
[2024-10-17] MEDS ORDERED: LIDOCAINE 1% INJ 10MG/ML (20 ML MDV) ONE (14:35)
[2024-10-17] MEDS: IOPAMIDOL M200 10 ML VIAL MISCELLANE ONE ×2 (14:36→15:05)
[2024-10-17] MEDS: BUPIVACAINE (PF) 0.5% 30 ML VIAL SQ ONE ×2 (14:36→15:05)
[2024-10-17] MEDS: LIDOCAINE 2%-EPI 1:100,000 20 ML VIAL SQ ONE ×2 (14:36→15:05)
[2024-10-17] MEDS: SODIUM CHLORIDE 0.9% 100 ML with ceFAZolin 2,000 MG IV ONE (14:40)
[2024-10-17] MEDS: HYDROmorphone 0.5 MG/0.5 ML SYRINGE IVP PRN (17:00)
--- NOTE | 2024-10-17 17:07 | P.PN ---
Subjective Progress Note Date: 10/17/24 Hospital course: Patient is a very pleasant 89-year-old female with a past medical history of osteoarthritis and previous orthopedic surgery. She presented to the emergency department with a chief complaint of back pain. Patient reports she was attempting to hang a ladder up on a wall and when she picked it up and rotated to her right she felt sudden significant pain throughout her mid back radiating around into her bilateral flanks/torso. Upon arrival to our facility, patient underwent evaluation in the emergency department. Vital signs upon arrival show blood pressure 139/99, heart rate 71, respiratory rate 17, temp 98.5 F, and SpO2 of 96% on room air. Labs completed and reviewed. CBC showing elevated MCH of 33.0 and MPV of 9.2 otherwise normal findings. Coagulation profile showing a low PTT of 21.3. BMP showing hypocarbia with bicarb of 20, blood glucose of 158, and hypercalcemia with calcium of 10.7. Magnesium normal findings at 1.9. Liver profile unremarkable. Amylase and lipase normal findings. Urinalysis negative for infection. CT abdomen and pelvis showing chronic changes with a 1.5 x 1.1 cm left lower lobe pulmonary nodule. CTA chest negative for PE showing mild to moderate bilateral lower lung linear scarring and/or atelectasis and again confirming the 1.5 cm left basilar pulmonary nodule, recommending outpatient PET scan to rule out malignancy.CT abdomen and pelvis without contrast negative for acute intra-abdominal process revealing demineralization and compression fracture at L5 level with moderate disc space narrowing at L2-L3 and T9 vertebra height loss. Patient was admitted under services with consultation to pain management and PT/OT. Physical exam: Patient seen and fully evaluated at bedside this morning. She was sitting on the edge of the bed visiting with her daughter at bedside. Patient awaiting to be taken down for T6 kyphoplasty later today with Dr. Perkins. She continues to deny having any numbness in her extremities or experiencing any involuntary loss of bowel or bladder. Vital signs reviewed and stable. General: Nontoxic, no distress and appears stated age. Derm: Skin warm and dry, normal coloration for ethnicity. Head: Atraumatic, normocephalic and symmetric. Eyes: EOM's intact, no lid lag, and anicteric sclera Mouth: no lip lesions, mucus membranes moist Cardiovascular: regular rate and rhythm with normal S1S2, no murmur, positive posterior tibial pulses bilaterally, and cap refill < 2 seconds. Lungs: Respirations even, regular, and unlabored on room air. Lungs CTA bilaterally, no rhonchi, no rales, no wheezing, and no accessory muscle usage. Abdominal: soft, nontender to palpation, no guarding, no appreciable organomegaly Ext: ROM intact. No gross muscle atrophy, no edema, no contractures Neuro: Speech clear, face symmetrical and CN II-XII grossly intact with no noted focal neuro deficits Psych: Alert and oriented to person, place, time, and situation. Appropriate and pleasant affect. Assessment and Plan of Care: Acute intractable back pain, thoracic and lumbar region Multiple thoracic vertebral compression fractures Multilevel spinal stenosis with severe spinal stenosis at the L3/L4 level. -CT thoracic and lumbar spine showing diffuse osteopenia with mild to moderate compression fractures of the T8 and T9 and mild compression fracture at T6, moderate compression fracture of L5, mild to moderate degenerative disc disease at L1 and L2 and L2-L3 levels and multilevel spinal stenosis mild at L2-L3 level and severe at the L3-L4 level and mild at L4-L5 level. -Orthopedic surgery following. Discussed plan of care with orthopedic surgery PA stating plan is for for T6 kyphoplasty later today -Symptomatic care and pain management with Tylenol-650 mg p.o. every 6 hours as needed for mild pain, [place] 5/325 mg tablets as needed for moderate pain, and lidocaine patch every 24 hours. -TLSO brace when out of bed -Pain management evaluated, reviewed documentation in chart. -CT thoracic and lumbar spine -PT/OT following Pulmonary nodule -Discussed findings with patient and her at bedside, recommend outpatient follow-up with PET scan. Hypercalcemia Resolved with IV fluid hydration. Data and imaging reviewed: Vital signs reviewed. Blood pressure elevated this morning at 173/79, heart rate 67, respiratory rate 16, temp 98.0 F, and SpO2 of 96% on room air. Patient reports moderate pain at time of vital signs. Patient medicated with morphine at this time and vital signs to be reassessed. - Labs reviewed. CBC showing hemoglobin 11.9, hematocrit 37.0, MCV 100.5, and MCH of 32.3. BMP unremarkable. Blood glucose 135. Calcium 8.8. Magnesium 1.9. CODE STATUS: DNR/DNI DVT prophylaxis: Lovenox Discussed with: Patient, patient's daughter at bedside, RN, and orthopedic PA Anticipated discharge date: Pending clinical course Anticipated discharge place: Home Patient was seen independently by Nurse Pracitioner. This document was prepared using [employer] dictation software. Please allow for errors in repair table operator, while rare they do occur. Rod Ratliff NP rendered care for this patient independently, reviewed the findings and plan as documented in the note above and agree with plan. I did not physically speak with or examine the patient on this date. Objective - Vital Signs Vital signs: Vital Signs Temp 98 F 10/17/24 07:50 Pulse 67 10/17/24 07:50 Resp 16 10/17/24 07:50 BP 173/79 10/17/24 07:50 Pulse Ox 96 10/17/24 07:50 FiO2 Intake & Output 10/16/24 10/17/24 10/17/24 18:59 06:59 18:59 Intake Total 356 Balance 356 Intake: Oral 356 Other: Voiding Method Toilet # Voids 2 - Labs CBC & Chem 7: 10/16/24 04:19 10/16/24 04:19 Labs: Abnormal Lab Results - Last 24 Hours (Table) 10/16/24 Range/Units 04:19 Glucose 135 H (70-110) mg/dL
--- NOTE | 2024-10-17 17:49 | P.OP ---
Date of Procedure: 10/17/24 Preoperative Diagnosis: 1. T8 AND T9 VCF 50% ACUTE WITH ACUTE ON CHRONIC 2. THORACIC BACK PAIN 3. DEBILITY Postoperative Diagnosis: 1. T8 AND T9 VCF 50% ACUTE WITH ACUTE ON CHRONIC 2. THORACIC BACK PAIN 3. DEBILITY Procedure(s) Performed: 1. T8 KYPHOPLASTY WITH BIOPSY 2. T9 KYPHOPLASTY WITH BIOPSY Implants: NATALIA CEMENT Anesthesia: GETA Surgeon: Patrice Perkins Oyster Culturist #1: Jhon Irvin (WAS PRESENT AND ASSISTED WITH ALL ASPECST OF THE CASE FROM POSITION TO DRESSING PLACEMENT) Estimated Blood Loss (ml): 10 IV fluids (ml): 500 Urine output (ml): 0 Pathology: none sent Condition: stable Disposition: PACU Indications for Procedure: [facility] PROVIDER: BEKA Oct 17, 2024 2:00?PM SPINE SURGERY CLINICAL AND RISK REVIEW JOSUÉ BURDEN is a 89 YO FEMALE presenting for evaluation of THORACIC BACK PAIN. It was my pleasure to have seen and examined JOSUÉ BURDEN . In our visit today we have had a chance to go over subjective complaints, physical examination findings and treatments including the natural course history without intervention and various interventional options. The patient's imaging demonstrates the following findings: T8 AND T9 ACUTE AND ACUTE ON CHRONIC VCF 50% WEDGE COMPRESSION ANTERIOR. OLD L5 VCF T6 VCF, LIKELY OLDER On a physical exam,JOSUÉ BURDEN demonstrates the following findings: PAIN WITH PALPATION THORACIC SPINE PAIN WITH MOTION THORACIC SPINE DEBILITY DUE TO PAIN IN BACK I have explained to the patient that as their condition progresses it will cause further neurological deficits and eventual paralysis. Based on the patients imaging, physical exam, and the rapid progression and disabling nature of their symptoms, at this time I recommend surgery in the form of a: T8 AND T9 KYPHOPL ASTY WITH BIOPSY . I discussed the risk and benefits of this procedure at length with JOSUÉ BURDEN . The patient has agreed to consider pursuing the procedure above mentioned. Prior to surgery, they should follow up with her PCP (Cardio, ID, IM etc) for clearance. Questions were invited and answered, and the patient wishes to proceed as outlined below. Currently, I am recommending: T8 AND T9 KYPHOPLASTY WITH BIOPSY Obtain appropriate presurgical workup and clearances as discussed with the patient. Review of surgical risks and benefits as well as an educational packet on the proposed surgical procedure. Risks: All surgical procedures come with inherent risks, including those related to positioning, anesthesia, intraoperative findings, and postoperative complications. It is important to understand that surgery does not come with any guarantee of a successful outcome as complications and adverse events are always possible. The patient was given a handout in the office today discussing the surgical procedure and risks associated with the intervention, both of which were discussed with the patient. These risks include but are not limited to the following: Experiencing same, different or even worse symptoms in back, neck, arms, or legs compared to before surgery. Requiring further surgery or other forms of treatment presently or at some time in the future at same or other levels of the intended spine surgery. On an extreme but fortunately relatively rare basis severe complications such as blindness, stroke, heart attack, temporary and/or permanent nerve injury, paralysis, coma, or may occur, sometimes without known explanation. Surgical complications may include but are not limited to risk of infection, fluid accumulation in the surgical dissection site, including a seroma or hematoma, that requires additional surgery, wound drainage, bleeding, new numbness or weakness, vision changes/loss, spinal fluid leakage, non-healing and/or infected incision, headaches, difficulty or inability to swallow, hoarseness, hemopneumothorax, pneumothorax, impotence, retrograde ejaculation, vaginal dryness; injury to nerves, spinal cord, blood vessels, lymphatics or other vital organs (i.e., bowel injury, injury to the great vessels); heterotopic bone formation; complications related to the hardware such as screws, rods, cages including misplaced hardware, device failure, instrumentation at the wrong spine level, hardware fracture/breakage, or hardware loosening; vertebral failure of the spinal column above or below the newly placed hardware; retained surgical instrumentations or devices and the need for further surgery. Medical risks of the planned spine surgery include but are not limited to generalized Infections to the whole body or local areas outside of the surgical site (sepsis), heart attack, bleeding, anaphylaxis, meningitis, seizure, epilepsy, hearing loss, burn minor, laceration of the head or other areas of the body, bruising, hypersensitivity of the skin, bladder over distension; allergic reaction; shoulder injury related to positioning; fat, blood and air clots to other areas of the body like heart, lungs, brain; failure of internal organs such as lungs, kidneys, liver and excessive bleeding. If blood transfusions are necessary, note that transfusions may cause intolerance reactions such as anaphylaxis or other complex reactions. Despite best efforts, the results of spine surgery might not heal in terms of bone, soft tissues such as skin, fascia, ligaments, and joints. Additionally, in order to achieve best possible results, spine surgery may be carried out beyond the initially planned levels and involve decompression, fusion including insertion of hardware at levels other than the original intended area of surgical interest change some portions of the procedure in order to ensure the best possible outcomes. With spine surgery and spinal fusion, there are different off label uses of instrumentation (devices, implants and hardware) as well as biological substances (bone morphogenic proteins, demineralized bone matrix) as well as using extra bone from allograft sources (i.e. cadaver bone) or autograft (iliac crest bone, ribs, or the spine itself). The patient has been given information about these practices and their inherent risks and benefits. The patient has had a chance to review all the listed information, has been given print outs detailing this information, and has had all his/her questions answered to their satisfaction. It was my pleasure to have seen and examined JOSUÉ BURDEN . In our visit today we have had a chance to go over my understanding of our patient's current condition, the natural course history without intervention and various interventional options. Questions were invited and answered, and the patient wishes to proceed as outlined above. I have seen and examined the patient for 25 minutes and we have spent more than 50% of the time in repeat and detailed counseling about the patient's condition, its natural course history without and as much as can be predicted with surgery and re-review of various surgical treatment options. In conclusion, JOSUÉ BURDEN and their family requested we proceed with the above suggested surgery and are willing to accept risks and limitations of the suggested surgery as the nature of the disease process and our best attempts at treatment for the condition. In our visit today the patient and I have had a chance to go over my understanding of their current condition, the natural course history without intervention and various interventional options. Questions were invited and answered, and the patient wishes to proceed as outlined above. I will be sure to keep you updated after the patient returns here for further follow-up. Thank you again for your referral. Please do not hesitate to contact me if you have any further questions. Signed and authenticated by: DO Renee Merino [facility] [address] [place] [address] This document is confidential, intended only for the named recipient(s) and may contain information that is privileged or exempt from disclosure under applicable law. If you are not the intended recipient(s), you are notified that the dissemination, distribution or copying of this information is strictly prohibited. If you received this message in error, please notify the sender then delete this message. Description of Procedure: THORACIC 8 AND 9 Kyphoplasty The patient was seen and examined in the preoperative area. All preoperative protocols were followed. Informed consent was obtained, risks and benefits of the procedure were discussed at length. Risks including bleeding infection damage to the surrounding tissue and risk of reoperation were discussed with the patient. Risk of anesthesia up to and including was discussed with the patient. These are outlined in the risk review. They were willing to accept these risks and all the risks of surgery. The patient was given a weight-based dose of antibiotics in the form of 2 g Ancef. The patient was seen and evaluated by the anesthesia team who deemed them fit for surgery. The site was marked, the patient was willing to proceed with the procedure. The patient was transferred to the operative suite by the Department of anesthesia. They were then drifted off to sleep by the department anesthesia and GETA was performed. The patient tolerated this well. Once confirmation of lines and ventilation the patient was transferred to a prone Pop table very carefully. All bony prominences including wrists, elbows, axilla, chest, hips, and thighs, and feet were padded very well. Special attention was paid to the genitalia, and these were padded accordingly. SCDs were placed on bilateral lower extremities and were connected. Arms were well padded and placed on arm boards up and out in the 90/90 position. Once in position, again we confirmed good ventilation capabilities and that lines were running appropriately. The pa tients Lumbar spine was then exposed. 1010s were placed outlining the incision site. Standard alcohol was used to clean the incision site and allowed to dry. C-arm was used to needle localize the pedicles at T9 and bio-zoran the patient and confirm level for incision which was marked with a skin marker. Operative briefing was performed with all teams and everyone in agreement to proceed. The patient was then prepped and draped in a normal sterile fashion. Timeout was then performed, and all parties agreed with the procedure to be performed. Skin kurt was made. Jamshitdi was passed into the T9 vertebral body via the pedicle. This was done with biplane fluoroscopy. Once in good position in the body the trochar is removed. Biopsy needle was passed into the body and a biopsy was taken. Drill was then passed and biopsy material taken from drill as well. Curette then used to reduce endplate and create more space. Balloon was then passed an inflated which showed good reduction of endplate on AP and Lateral and confirmed central placement. The cement was then placed and pt remained stable. Good fill of cement was seen without extravasation. Once good fill, the Jamshedi was removed and the wound irrigated. This process was then repeated at T8 bilaterally. Good cement fill, without extravasation and good reduction noted. The skin was closed with a simple stitch and dressed with a bandaid. The patient was then transferred off the table back to their hospital bed a- traumatically. They were extubated by the department of anesthesia. They were then transferred to PACU in stable condition having tolerated the procedure with no complications.
[2024-10-17] MEDS: LABETALOL SYRINGE 5 MG/ML (4 ML SYR) IVP STA (17:50)
[2024-10-17] MEDS: LABETALOL 5 MG/ML VIAL MDV IVP STA (18:41)
[2024-10-17] MEDS: SODIUM CHLORIDE 0.9% 1,000 ML IV SCH (18:52)
[2024-10-17] MEDS: LACTATED RINGERS 1,000 ML BAG IV STA (18:56)
--- NOTE | 2024-10-17 19:06 | XR ---
Fluoroscopy INDICATION: Pain FINDINGS: Fluoroscopy time: 1 minute 11 seconds. Total dose area product (DAP) in uGy*m?, mGy*cm? (or similar): 4.6986 Images obtained: 21. Images document vertebroplasty reported T8 and T9 IMPRESSION: 1. Documentation of fluoroscopy. [facility], , 10/17/2024 7:03 PM
--- NOTE | 2024-10-17 19:09 | FL ---
Fluoroscopy INDICATION: Pain FINDINGS: Fluoroscopy time: 11 seconds. Total dose area product (DAP) in uGy*m?, mGy*cm? (or similar): 4.6986 Images obtained: 0. Images document vertebroplasty IMPRESSION: 1. Documentation of fluoroscopy. [facility], , 10/17/2024 7:06 PM
[2024-10-18 07:52] VITALS: RESP 18; TEMP 98.1
[2024-10-18 07:53] VITALS: PULSE 99
[2024-10-18 09:24] LABS: BUN/Creat Ratio 20.29 Ratio (12.00-20.00); Blood Urea Nitrogen 14.2 mg/dL (9.0-27.0); Calcium 9.4 mg/dL (8.7-10.3); Carbon Dioxide 25.3 mmol/L (21.6-31.8); Chloride 102 mmol/L (96-109); Glucose 127 mg/dL (70-110); Magnesium 2.3 mg/dL (1.5-2.4); Potassium 4.7 mmol/L (3.5-5.5); Sodium 138 mmol/L (135-145)
[2024-10-18 09:33] LABS: HCT 38.2 % (37.2-46.3); HGB 12.8 g/dL (12.0-15.0); MCH 32.5 pg (27.0-32.0); MCHC 33.5 g/dL (32.0-37.0); Mean Platelet Volume 9.7 FL (9.5-12.2); NRBC Per 100 WBC 0 X 10*3/uL (0.00-0.01); Platelet Count 202 X 10*3/uL (140-440); RBC 3.94 X 10*6/uL (4.10-5.20); RDW 13.1 % (11.5-14.5); WBC 7.32 X 10*3/uL (4.50-10.00)
--- NOTE | 2024-10-18 11:36 | P.PN ---
Subjective Progress Note Date: 10/18/24 Principal diagnosis: Severe back pain Patient was evaluated at bedside today, her was also present. Patient is doing well at this time, her pain is a lot better since having the kyphoplasty at T8 and T9 yesterday. She is very eager to be discharged home. She has not getting up and ambulating with the assistance of the walker in her brace. She is urinating with no issues. She has been dealing with a higher blood pressure, the internal medicine team is working with this. Objective - Vital Signs Vital signs: Vital Signs Temp 98.1 F 10/18/24 07:06 Pulse 99 10/18/24 07:07 Resp 18 10/18/24 07:06 BP 200/80 10/18/24 09:28 Pulse Ox 93 L 10/18/24 08:48 FiO2 Intake & Output 10/17/24 10/18/24 10/18/24 18:59 06:59 18:59 Intake Total 700 750 Output Total 15 Balance 685 750 Intake: IV 700 Oral 750 Output: Estimated Blood Loss 15 Other: Voiding Method Toilet Toilet # Voids 3 - Exam Gen: AOx3, NAD VSS stable at this time Integument: No open lesions or sores are visualized throughout the cervical, thoracic or lumbar spine Palpation: Patient demonstrates mild tenderness palpation in the paraspinal region of the thoracic spine and lumbar spine, there is no significant midline tenderness ROM: Full range of motion in all major muscle groups of the bilateral upper extrem ities, no focal deficits Full range of motion in all major muscle groups of the bilateral lower extr emities, no focal deficits Sensory Exam: Senory exam to light touch is intact C5-T1 Senosry exam to light touch is intact L2-S1 Motor: 4/5 strength appreciated in the bilateral upper extremities with shoulder elevation, shoulder abduction, elbow extension, elbow flexion, wrist extension, wrist flexion, basin finish operator tig welder 4/5 strength appreciate the bilateral lower extremities with plantarflexion, dorsiflexion, EHL, FHL 4-/5 strength appreciated bilateral lower extremities with hip flexion, knee extension, knee flexion Reflexes: 2/4 in all UE and LE Negative Klarissa's bilaterally Negative clonus bilaterally Special Test: Negative straight leg raise bilaterally Negative logroll maneuver bilaterally - Labs CBC & Chem 7: 10/18/24 06:08 10/18/24 06:08 Labs: Abnormal Lab Results - Last 24 Hours (Table) 10/18/24 10/18/24 Range/Units 06:08 06:08 RBC 3.94 L (4.10-5.20) X 10*6/uL MCH 32.5 H (27.0-32.0) pg BUN/Creatinine Ratio 20.29 H (12.00-20.00) Ratio Glucose 127 H (70-110) mg/dL Assessment and Plan Assessment: Status post kyphoplasty with biopsy of T8 and T9 vertebral body compression fracture Thoracic/lumbar pain Multiple thoracic vertebral compression fractures, T8,T9 acute VCF Multilevel lumbar spondylosis Multilevel lumbar stenosis L5 VCF, chronic Other medical comorbidities Plan: Plan: Pain control, plan for discharge home with both oral [place] and oral stool softener GI DVT prophylaxis per primary medical service PT/OT evaluation Other medical specialty recommendations appreciated Patient stable for discharge on the orthopedic standpoint, follow-up in 2 weeks Time with Patient: Less than 30
[2024-10-18] MEDS: LORazepam 1 MG/0.5 ML VIAL IV STA (11:42)
[2024-10-18] MEDS: amLODIPine 5 MG TAB PO STA (11:47)
[2024-10-18 13:07] VITALS: BP 180/90
--- NOTE | 2024-10-18 16:47 | P.PN ---
Subjective Progress Note Date: 10/18/24 Hospital course: Patient is a very pleasant 89-year-old female with a past medical history of osteoarthritis and previous orthopedic surgery. She presented to the emergency department with a chief complaint of back pain. Patient reports she was attempting to hang a ladder up on a wall and when she picked it up and rotated to her right she felt sudden significant pain throughout her mid back radiating around into her bilateral flanks/torso. Upon arrival to our facility, patient underwent evaluation in the emergency department. Vital signs upon arrival show blood pressure 139/99, heart rate 71, respiratory rate 17, temp 98.5 F, and SpO2 of 96% on room air. Labs completed and reviewed. CBC showing elevated MCH of 33.0 and MPV of 9.2 otherwise normal findings. Coagulation profile showing a low PTT of 21.3. BMP showing hypocarbia with bicarb of 20, blood glucose of 158, and hypercalcemia with calcium of 10.7. Magnesium normal findings at 1.9. Liver profile unremarkable. Amylase and lipase normal findings. Urinalysis negative for infection. CT abdomen and pelvis showing chronic changes with a 1.5 x 1.1 cm left lower lobe pulmonary nodule. CTA chest negative for PE showing mild to moderate bilateral lower lung linear scarring and/or atelectasis and again confirming the 1.5 cm left basilar pulmonary nodule, recommending outpatient PET scan to rule out malignancy.CT abdomen and pelvis without contrast negative for acute intra-abdominal process revealing demineralization and compression fracture at L5 level with moderate disc space narrowing at L2-L3 and T9 vertebra height loss. Patient was admitted under services with consultation to pain management and PT/OT. CT thoracic and lumbar spine showing diffuse osteopenia with mild to moderate compression fractures of the T8 and T9 and mild compression fracture at T6, moderate compression fracture of L5, mild to moderate degenerative disc disease at L1 and L2 and L2-L3 levels and multilevel spinal stenosis mild at L2-L3 level and severe at the L3-L4 level and mild at L4-L5 level. Patient underwent T8 and T9 kyphoplasty with biopsy on 10/17/2024. Physical exam: Patient seen and fully evaluated at bedside this morning. Patient very anxious and panicky about being in the hospital. Stating she just wants and needs to go home. Per RN at bedside patient has been working herself up all night over anxiety of being in the hospital. Patient's blood pressure elevated as high as 213/95 this morning. Patient has ran slightly elevated 140s to 150s throughout hospitalization, but has been very adamant and against taking any antihypertensive medications. She reports she is just very anxious and that is why her blood pressure is up, she denies having any pain at this time. Discussed with patient and family at bedside this morning that medication may be ordered for blood pressure and anxiety. Patient initially refusing any medications and remained very adamant on discharge. Family spoke with patient and patient in agreement to take antihypertensive medication at this time. Vital signs reviewed and stable. General: Nontoxic, no distress and appears stated age. Derm: Skin warm and dry, normal coloration for ethnicity. Head: Atraumatic, normocephalic and symmetric. Eyes: EOM's intact, no lid lag, and anicteric sclera Mouth: no lip lesions, mucus membranes moist Cardiovascular: regular rate and rhythm with normal S1S2, no murmur, positive posterior tibial pulses bilaterally, and cap refill < 2 seconds. Lungs: Respirations even, regular, and unlabored on room air. Lungs CTA bilaterally, no rhonchi, no rales, no wheezing, and no accessory muscle usage. Abdominal: soft, nontender to palpation, no guarding, no appreciable organomegaly Ext: ROM intact. No gross muscle atrophy, no edema, no contractures Neuro: Speech clear, face symmetrical and CN II-XII grossly intact with no noted focal neuro deficits Psych: Alert and oriented to person, place, time, and situation. Appropriate and pleasant affect. Assessment and Plan of Care: Status post T8 and T9 kyphoplasty with biopsy. Acute intractable back pain, thoracic and lumbar region Multiple thoracic vertebral compression fractures Multilevel spinal stenosis with severe spinal stenosis at the L3/L4 level. -Orthopedic surgery following, discussed plan of care -Symptomatic care and pain management with Tylenol-650 mg p.o. every 6 hours as needed for mild pain, [place] 5/325 mg tablets as needed for moderate pain, and lidocaine patch every 24 hours. -TLSO brace when out of bed -Pain management evaluated, reviewed documentation in chart. -CT thoracic and lumbar spine -PT/OT following Hypertension - Likely multifactorial secondary to underlying undiagnosed hypertension along with anxiety over hospitalization. Patient started on amlodipine 5 mg daily. Pulmonary nodule -Discussed findings with patient and her at bedside, recommend outpatient follow-up with PET scan. Hypercalcemia Resolved with IV fluid hydration. Data and imaging reviewed: Vital signs reviewed. Blood pressure elevated this morning as high as 213/95. Heart rate 99, respiratory rate 18, temp 98.1 F, and SpO2 of 93% on room air. - Labs reviewed. CBC showing stable hemoglobin of 12.8. BMP unremarkable. Blood glucose 127. Magnesium 2.3. CODE STATUS: DNR/DNI DVT prophylaxis: Lovenox Discussed with: Patient, patient's daughter and at bedside, RN, and orthopedic PA Anticipated discharge date: Pending clinical course Anticipated discharge place: Home Patient was seen independently by Nurse Pracitioner. This document was prepared using [employer] dictation software. Please allow for errors in iron handler, while rare they do occur. Rod Ratliff NP rendered care for this patient independently, reviewed the findings and plan as documented in the note above and agree with plan. I did not physically speak with or examine the patient on this date. Objective - Vital Signs Vital signs: Vital Signs Temp 98.1 F 10/18/24 07:06 Pulse 99 10/18/24 07:07 Resp 18 10/18/24 07:06 BP 200/80 10/18/24 09:28 Pulse Ox 93 L 10/18/24 08:48 FiO2 Intake & Output 10/17/24 10/18/24 10/18/24 18:59 06:59 18:59 Intake Total 700 750 Output Total 15 Balance 685 750 Intake: IV 700 Oral 750 Output: Estimated Blood Loss 15 Other: Voiding Method Toilet Toilet # Voids 3 - Labs CBC & Chem 7: 10/18/24 06:08 10/18/24 06:08 Labs: Abnormal Lab Results - Last 24 Hours (Table) 10/18/24 10/18/24 Range/Units 06:08 06:08 RBC 3.94 L (4.10-5.20) X 10*6/uL MCH 32.5 H (27.0-32.0) pg BUN/Creatinine Ratio 20.29 H (12.00-20.00) Ratio Glucose 127 H (70-110) mg/dL
--- NOTE | 2024-10-18 16:47 | P.DS ---
Providers Date of admission: 10/15/24 12:47 Expected date of discharge: 10/18/24 Attending physician: Ernesto Woodall MD Consults: 10/14/24 14:20 Consult Physician Routine Consulting Provider: Patrice Perkins Consult Reason/Comments: uncontrolled back pain, severe spinal stenosis L3-L4 Do you want consulting provider notified?: Yes Primary care physician: Physician Nonstaff Hospital Course: Discharge Diagnosis: Hypertensive urgency, multifactorial secondary to underlying undiagnosed hypertension along with anxiety and panic attack over hospitalization. Patient started on amlodipine 5 mg daily, blood pressure did decrease from 213/95 down to 182/84. When attempts made at monitoring patient again overnight for management of blood pressure patient again panicking and blood pressure again going back up. Instructed patient if she remains home and blood pressure decreases will discharge home. Blood pressure did decrease back down to 180/90. Patient being discharged home and amlodipine 5 mg daily and instructed to monitor her blood pressures closely at home twice daily and document findings and a daily log/journal to bring with her to her follow-up appointment with PCP as additional medication changes/dose changes may be needed. Status post T8 and T9 kyphoplasty with biopsy. Acute intractable back pain, thoracic and lumbar region Multiple thoracic vertebral compression fractures Multilevel spinal stenosis with severe spinal stenosis at the L3/L4 level. Pulmonary nodule. Discussed findings with patient and her at bedside, recommend outpatient follow-up with PET scan. Hypercalcemia. Resolved with IV fluid hydration. Hospital Course: Patient is a very pleasant 89-year-old female with a past medical history of osteoarthritis and previous orthopedic surgery. She presented to the emergency department with a chief complaint of back pain. Patient reports she was attempting to hang a ladder up on a wall and when she picked it up and rotated to her right she felt sudden significant pain throughout her mid back radiating around into her bilateral flanks/torso. Upon arrival to our facility, patient underwent evaluation in the emergency department. Vital signs upon arrival show blood pressure 139/99, heart rate 71, respiratory rate 17, temp 98.5 F, and SpO2 of 96% on room air. Labs completed and reviewed. CBC showing elevated MCH of 33.0 and MPV of 9.2 otherwise normal findings. Coagulation profile showing a low PTT of 21.3. BMP showing hypocarbia with bicarb of 20, blood glucose of 158, and hypercalcemia with calcium of 10.7. Magnesium normal findings at 1.9. Liver profile unremarkable. Amylase and lipase normal findings. Urinalysis negative for infection. CT abdomen and pelvis showing chronic changes with a 1.5 x 1.1 cm left lower lobe pulmonary nodule. CTA chest negative for PE showing mild to moderate bilateral lower lung linear scarring and/or atelectasis and again confirming the 1.5 cm left basilar pulmonary nodule, recommending outpatient PET scan to rule out malignancy.CT abdomen and pelvis without contrast negative for acute intra-abdominal process revealing demineralization and compression fracture at L5 level with moderate disc space narrowing at L2-L3 and T9 vertebra height loss. Patient was admitted under services with consultation to pain management and PT/OT. CT thoracic and lumbar spine showing diffuse osteopenia with mild to moderate compression fractures of the T8 and T9 and mild compression fracture at T6, moderate compression fracture of L5, mild to moderate degenerative disc disease at L1 and L2 and L2-L3 levels and multilevel spinal stenosis mild at L2-L3 level and severe at the L3-L4 level and mild at L4-L5 level. Patient underwent T8 and T9 kyphoplasty with biopsy on 10/17/2024. Physical exam: Vital signs reviewed and stable. General: Nontoxic, no distress and appears stated age. Derm: Skin warm and dry, normal coloration for ethnicity. Head: Atraumatic, normocephalic and symmetric. Eyes: EOM's intact, no lid lag, and anicteric sclera Mouth: no lip lesions, mucus membranes moist Cardiovascular: regular rate and rhythm with normal S1S2, no murmur, positive posterior tibial pulses bilaterally, and cap refill < 2 seconds. Lungs: Respirations even, regular, and unlabored on room air. Lungs CTA bilaterally, no rhonchi, no rales, no wheezing, and no accessory muscle usage. Abdominal: soft, nontender to palpation, no guarding, no appreciable organomegaly Ext: ROM intact. No gross muscle atrophy, no edema, no contractures Neuro: Speech clear, face symmetrical and CN II-XII grossly intact with no noted focal neuro deficits Psych: Alert and oriented to person, place, time, and situation. Appropriate and pleasant affect. A total of 35 minutes of time were spent preparing this complex discharge summary. Pt was discharged on 10/18/2024 at 2:16 PM Patient was seen independently by Nurse Practitioner. This document was prepared using [employer] dictation software. Please allow for errors in insole rounder while rare they do occur. Rod Ratliff NP rendered care for this patient independently, reviewed the findings and plan as documented in the note above. I did not physically speak with or examine the patient on this date. Patient Condition at Discharge: Stable Plan - Discharge Summary New Discharge Prescriptions: New Sennosides/Docusate Sodium [Senna-S 8.6-50 mg Tablet] 2 each PO DAILY PRN #30 tablet PRN Reason: Constipation amLODIPine [Norvasc] 5 mg PO DAILY 90 Days #90 tab Lidocaine 4% Patch 1 patch TOPICAL DAILY@1230 30 Days #30 patch HYDROcodone/APAP 5-325MG [[place] 5-325] 1 tab PO Q6HR PRN #28 tab PRN Reason: Pain Discharge Medication List Lidocaine 4% Patch 1 patch TOPICAL DAILY@1230 30 Days #30 patch 10/14/24 [Rx] HYDROcodone/APAP 5-325MG [[place] 5-325] 1 tab PO Q6HR PRN #28 tab 10/18/24 [Rx] Sennosides/Docusate Sodium [Senna-S 8.6-50 mg Tablet] 2 each PO DAILY PRN #30 tablet 10/18/24 [Rx] amLODIPine [Norvasc] 5 mg PO DAILY 90 Days #90 tab 10/18/24 [Rx] Follow up Appointment(s)/Referral(s): Gonzalo Horton MD [STAFF PHYSICIAN] - 1 Week (As discussed with you at bedside, recommend outpatient follow-up for PET scan for single pulmonary nodule noted on CT scan.) Nino Jenkins DO [REFERRING] - 1 Week (Please call and schedule first available appointment for outpatient follow-up and establishment of care for management of your hypertension.) Patrice Perkins DO [Doctor of Osteopathic Medicine] - 2 Weeks Patient Instructions/Handouts: Vertebral Compression Fracture (DC), How to Take a Blood Pressure (GEN) Activity/Diet/Wound Care/Special Instructions: Activity: As tolerated. Wear TLSO brace when out of bed and ambulate with assistance of walker. Diet: Heart healthy and carb consistent diet. Avoid salts, or foods with hidden salts such as canned or boxed foods and frozen dinners. Extra salt makes your heart work harder and traps the fluid in your body for longer and can make your blood pressures higher. Special Instructions: Take all of your medications as directed and remember to keep all of your doctor's appointments and follow-up as needed. You have been started on amlodipine 5 mg daily for treatment of your blood pressure. It is important to monitor your blood pressures closely at home taking them twice daily and documenting these findings in a daily log or journal to bring with you to your next doctor's appointment, as additional medications and/or dosing changes may be needed to this current regimen. Pulmonary nodule. Discussed findings with patient and her at bedside, recommend outpatient follow-up with PET scan. Thank you for allowing us to participate in your care, it was truly a pleasure having you for our patient!!! Discharge Disposition: HOME SELF-CARE
[2024-10-19] MEDS ORDERED: amLODIPine 5 MG TAB PO SCH (09:00)
== END 2024-10-18 14:27 | disposition home or self-care (01) | DRG 479 ==
LOC: EC 18:15 → 6NMEDSUR 23:29 → OBSVTOIN 10-15 12:47 → 4SSUR 10-17 17:51
PROVIDERS: ADMIT Internal Medicine; ATTEND Internal Medicine
PROC: 0PU43JZ Supplement Thoracic Vertebra with Synthetic Substitute, Percutaneous Approach (ICD-10-PCS; 2024-10-17)
PROC: 0PS43ZZ Reposition Thoracic Vertebra, Percutaneous Approach (ICD-10-PCS; principal; 2024-10-17 09:10)
PROC: 0PB43ZX Excision of Thoracic Vertebra, Percutaneous Approach, Diagnostic (ICD-10-PCS; principal; 2024-10-17 09:10)
DX: M48.54XA Collapsed vertebra, not elsewhere classified, thoracic region, initial encounter for fracture (principal); Z66 Do not resuscitate; I16.0 Hypertensive urgency; M48.56XA Collapsed vertebra, not elsewhere classified, lumbar region, initial encounter for fracture; I10 Essential (primary) hypertension; E83.52 Hypercalcemia; R53.81 Other malaise; R91.1 Solitary pulmonary nodule; M47.816 Spondylosis without myelopathy or radiculopathy, lumbar region; M48.061 Spinal stenosis, lumbar region without neurogenic claudication; M85.88 Other specified disorders of bone density and structure, other site; F41.9 Anxiety disorder, unspecified; M51.360 Other intervertebral disc degeneration, lumbar region with discogenic back pain only
CPT/HCPCS: 36415; 71275; 72070; 72128; 72131; 74176; 74177; 80048; 80053; 81001; 82150; 83690; 83735; 84100; 84484; 85025; 85027; 85610; 85730; 88307; 88311; 94760; 96361; 96374; 96375; 96376; 99285